=== PATIENT | female | born 1955 | race Caucasian/White ===

== ENCOUNTER 2016-07-01 04:05 | Emergency (ER) | payer BC ==
[2016-07-01 04:17] VITALS: BP 128/66
--- NOTE | 2016-07-01 04:55 | EDM.PDOC ---
ED HPI GENERAL MEDICAL PROBLEM - General Chief Complaint: General Stated Complaint: COUGH Time Seen by Provider: 07/01/16 04:44 Source of Information: Reports: Patient History Limitations: Reports: No limitations - History of Present Illness INITIAL COMMENTS - FREE TEXT/NARRATIVE: Patient came here by private vehicle for evaluation of cough. Has had cold symptoms including runny nose, irritated throat, and cough. Present for three days. Using OTC cold medication. Tonight she was woken up by worsening cough. Cough triggered urinary incontinence. No fevers. No SOB reported although it is noted that she has audible expiratory wheeze during intake interview. Denies GI changes. No history of smoking but grew up in smoking household. No other complaints. Cannot remember her medications. 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 ED EXAM, GENERAL - Physical Exam Exam: See Below Exam Limited By: No limitations General Appearance: alert, WD/WN, no apparent distress Eye Exam: bilateral eye: EOMI, PERRL Ears: normal external exam, normal canal, hearing grossly normal, normal TMs Throat/Mouth: Normal inspection, Normal lips, Normal oropharynx, Normal voice, No airway compromise Head: atraumatic, normocephalic Neck: normal inspection, supple, non-tender, full range of motion. No: lymphadenopathy (L), lymphadenopathy (R) Respiratory/Chest: no respiratory distress, no accessory muscle use, wheezing ( mild expiratory wheeze at times). No: crackles, rales, rhonchi, stridor, accessory muscle use, retractions, splinting Cardiovascular: regular rate, rhythm, no edema, no murmur GI/Abdominal: soft, non tender Back Exam: normal inspection Extremities: normal inspection, normal capillary refill Neurological: alert, oriented, normal cognition, no motor/sensory deficits Psychiatric: normal affect, normal mood Skin Exam: Warm, Dry, Intact, Normal color Course - Vital Signs Last Recorded V/S: Last Vital Signs Temp 37.7 C 07/01/16 04:07 Pulse 88 07/01/16 04:07 Resp 20 07/01/16 04:07 BP 128/66 07/01/16 04:07 Pulse Ox 95 07/01/16 04:07 - Orders/Labs/Meds Orders: Active Orders 24 hr Category Date Time Status Chest 2V [CR] Stat Exams 07/01/16 04:24 Taken - Radiology Interpretation Free Text/Narrative:: XRay of chest compared to prior studies from 5 years ago. Continues to show similar heavy markings at bases that Radiology felt consistent with fibrotic changes. Slight progression in severity of markings noted. No obvious infiltrates although due to markings cannot fully rule out patchy bronchopneumonia. - Re-Assessments/Exams Free Text/Narrative Re-Assessment/Exam: 07/01/16 05:16 Patient given Solu-medrol and Duo Neb in ER. Plan at this time is to treat with steroids, albuterol inhaler, and cough medication. Given absence of fever and history/exam, appears more likely viral in nature. Cannot rule out possible need for antibiotics however and will give patient Rx to use if symptoms worsen over the next few days or if things do not improve at the one week camila. She is to follow up as needed. Departure - Departure Time of Disposition: 05:28 Disposition: Home, Self-Care 01 Condition: good Clinical Impression: Respiratory tract infection Prescriptions: Doxycycline [Vibramycin] 100 mg PO Q12HR #14 cap Prednisone [IMW: predniSONE] 40 mg PO WITHBREAKFAST #8 tab Forms: ED Department Discharge Additional Instructions: Follow up as needed if you experience worsening or if symptoms are not improving within 7-10 days. Use albuterol inhaler every 6-8 hours for the next week to help with coughing/airway. If needed, you can use it as often as every 4-6 hours. If symptoms suddenly worsen, or you develop fever, fill the prescription for the antibiotics. Most viruses peak in intensity around days 3-5 then start to improve. If this does not follow a normal viral course then consider taking the antibiotic. Follow up as needed if you experience problems. - My Orders Last 24 Hours: My Active Orders 07/01/16 04:24 Chest 2V [CR] Stat - Assessment/Plan Last 24 Hours: My Active Orders 07/01/16 04:24 Chest 2V [CR] Stat
[2016-07-01] MEDS ORDERED: Albuterol/Ipratropium 3.0-0.5 MG/3 ML Neb Soln NEB ONE (04:58)
[2016-07-01] MEDS ORDERED: methylPREDNISolone Sodium Succinate 125 MG/2 ML SDV IM ONE (04:58)
== END 2016-07-01 05:45 | disposition home or self-care (01) ==
LOC: LL.ED 04:05
DX: J98.8 Other specified respiratory disorders (principal); I10 Essential (primary) hypertension
CPT/HCPCS: 71020; 94640; 96372; 99283; J2930

== ENCOUNTER 2017-05-03 22:15 | Emergency (ER) | payer BC ==
--- NOTE | 2017-05-03 22:34 | EDM.PDOC ---
ED HPI GENERAL MEDICAL PROBLEM - General Chief Complaint: Back Pain or Injury Stated Complaint: Back Pain Time Seen by Provider: 05/03/17 22:25 Source of Information: Reports: Patient, Family (), Old Records ([facility] chart/EMR) History Limitations: Reports: No Limitations - History of Present Illness INITIAL COMMENTS - FREE TEXT/NARRATIVE: The patient was brought to the emergency room via private automobile by her for evaluation of 10/10 right-sided sharp low back pain and spasms with additional 4/10 mid to distal left humeral pain after she slipped on the ice in town at about 21:00 hours. She did have some mild urinary incontinence at that time, however no history of paresthesias, neurological deficits, weakness, etc. Note previous history of left elbow fracture as below, however she normally does not have any problems with low back pain. She denies any headaches, visual changes, head injury, loss of consciousness, nausea, change in mental status, or other complaints or injuries. The patient denies any chest pain/pressure, heart flutter, dizziness, orthostasis, orthopnea, diaphoresis, paresthesias, recent decreased exercise tolerance, or any other anginal-type symptoms. No recent history of abdominal pain, heartburn, nausea, diarrhea, melena, gross hematochezia, or any food intolerance, including fatty foods, etc.. The patient also denies any recent fever, cough, wheezing, dyspnea, etc.. She did take 650 mg of Tylenol at 21:30 hours, however did have one episode of emesis shortly thereafter. Onset: Today, Sudden Onset Date: 05/03/17 Onset Time: 21:00 Duration: Constant Location: Reports: Back (Low back as above), Upper Extremity, Left (As above). Denies: Head, Face, Neck, Chest, Abdomen, Pelvis, Upper Extremity, Right, Lower Extremity, Left, Lower Extremity, Right, Radiates to Quality: Reports: Same as Previous Episode, Sharp, Stabbing Severity: Severe Improves with: Reports: Rest Worsens with: Reports: Movement Context: Reports: Trauma (As above) Associated Symptoms: Reports: Nausea/Vomiting (As above). Denies: Confusion, Chest Pain, Cough, Diaphoresis, Fever/Chills, Headaches, Loss of Appetite, Malaise, Seizure, Shortness of Breath, Syncope, Weakness Treatments FLOOR SCRAPER: Reports: Acetaminophen Right Lower Back Pain Score (Numeric/FACES): 10 Left Arm Pain Score (Numeric/FACES): 4 - Related Data Allergies Allergy/AdvReac Type Severity Reaction Status Date / Time No Known Allergies Allergy Verified 07/01/16 04:06 Home Meds: Home Meds Acetaminophen 650 mg PO Q4HR PRN 05/03/17 [History] Aspirin [Ecotrin] 81 mg PO DAILY 05/03/17 [History] Bisoprolol [Zebeta] 5 mg PO DAILY 05/03/17 [History] Calcium Carbonate/Vitamin D3 [Calcium 600 + Vit D Tablet] 1 tab PO DAILY [History] Cyclobenzaprine [Flexeril] 10 mg PO TID PRN #30 tab 05/03/17 [Rx] Sertraline [Zoloft] 50 mg PO DAILY 05/03/17 [History] Ubidecarenone [Co Q-10] 100 mg PO DAILY 05/03/17 [History] Past Medical History HEENT History: Reports: Cataract, Impaired Vision, Other (See Below). Denies: Allergic Rhinitis, Glaucoma, Hard of Hearing, Macular Degeneration, Retinal Detachment Other HEENT History: Patient wears glasses beginning cataracts Cardiovascular History: Reports: High Cholesterol, Hypertension, PVD, Other ( See Below). Denies: Afib, Aneurysm, Arrhythmia, Blood Clots/VTE/DVT, CAD, Heart Failure, Heart Murmur, RI, Syncope Other Cardiovascular History: Hyperlipidemia with secondary fatty liver as below. Varicose veins on the legs bilaterally. Respiratory History: Reports: Intubation, Previous, Other (See Below). Denies: Asthma, COPD, PE, Pneumothorax, Sleep Apnea, TB Other Respiratory History: History of 6 mm right middle lobe benign pulmonary granuloma Gastrointestinal History: Reports: Cholelithiasis, Gastritis, Helicobacter Pylori, Other (See Below). Denies: Celiac Disease, Chronic Constipation, Chronic Diarrhea, Colon Polyp, Diverticulosis, Fecal Incontinence, GERD, GI Bleed, Inflammatory Bowel Disease, Irritable Bowel Syndrome, Jaundice, Pancreatitis Other Gastrointestinal History: History of gastritis with positive H. pylori biopsy by EGD on 12/28/05 with patient uncertain whether this infection was treated. Nonsymptomatic cholelithiasis. Fatty liver with secondary LFTs elevation. Genitourinary History: Reports: Other (See Below). Denies: Acute Renal Failure , Chronic Renal Insuffiency, Renal Calculus, STD, Urinary Incontinence, UTI, Recurrent Other Genitourinary History: Benign right renal cyst by ultrasound SUBASSEMBLER History: Reports: Dysfunctional Uterine Bleeding, Fibroids, . Denies: Endometriosis, Polycystic Ovaries : 1 Para: 1 (Full term without complications during or delivery) LMP (Approximate): Menopausal (Surgical menopause as below with complete hysterectomy secondary to uterine fibroids) Musculoskeletal History: Reports: Arthritis, Fracture, Osteoarthritis, Osteoporosis, Other (See Below). Denies: Amputation, Back Pain, Chronic, Fibromyalgia, Gout, Neck Pain, Chronic, RA, SLE Other Musculoskeletal History: Osteoarthritis mostly in her knees with history of left knee chondromalacia by MRI. Proximal radial head left elbow fracture on 06/11/05 Neurological History: Reports: Headaches, Chronic, Migraines. Denies: Cerebral Aneurysms, Concussion, CVA, Head Trauma, MS, Neuropathy, Diabetic, Neuropathy, Peripheral, Parkinson's, Seizure, TIA Psychiatric History: Reports: Anxiety, Depression. Denies: Abuse, Victim of, ADD, ADHD, Addiction, Psych Hospitalization(s), PTSD, Suicide Attempt, Suicidal Ideation Endocrine/Metabolic History: Reports: Obesity/BMI 30+, Osteopenia, Osteoporosis. Denies: Diabetes, Type I, Diabetes, Type II, Diabetes Mellitus, Type 3c, Hypothyroidism, IDDM Hematologic History: Reports: Anemia, Blood Transfusion(s), Iron Deficiency, Other (See Below). Denies: B12 Deficiency Other Hematologic History: 2 units of packed red blood cells secondary to iron deficiency anemia from dysfunctional uterine bleeding in 2006 Immunologic History: Reports: None. Denies: AIDS, HIV, SLE Oncologic (Cancer) History: Reports: None. Denies: Basal Cell Carcinoma, Cervix , Hodgkin's Lymphoma, Leukemia, Lymphoma, Malignant Melanoma, Non-Hodgkin's Lymphoma Dermatologic History: Reports: None. Denies: Eczema, Psoriasis - Infectious Disease History Infectious Disease History: Reports: Chicken Pox, Helicobacter Pylori (As above) , Mononucleosis (At age 20), Mumps, Shingles (Left facial and cervical herpes zoster in 2004). Denies: C-Difficile, Measles, Meningitis, MRSA, Rheumatic Fever, Rubella, Scarlet Fever, TB, VRE - Past Surgical History Head Surgeries/Procedures: Reports: None HEENT Surgical History: Reports: Oral Surgery, Other (See Below). Denies: Adenoidectomy, Cataract Surgery, Eye Surgery, Laser Surgery, LASIK, Myringotomy w Tube(s), Naso-Sinus Surgery, Tonsillectomy Other HEENT Surgeries/Procedures: [place] teeth extraction 4 as a teenager. Cardiovascular Surgical History: Reports: None. Denies: Varicose Respiratory Surgical History: Reports: None. Denies: Thoracentesis GI Surgical History: Reports: Colonoscopy, EGD, Other (See Below). Denies: Appendectomy, Cholecystectomy, Hernia, Abdominal, Hernia, Inguinal, Hernia Repair/Other Other GI Surgeries/Procedures: EGD and colonoscopy on 12/28/06 Female Surgical History: Reports: Breast Biopsy, Hysterectomy, Salpingo- Oophorectomy, Other (See Below) Other Female Surgeries/Procedures: Complete hysterectomy including bilateral salpingo-oophorectomy at age 52 secondary to dysfunctional uterine bleeding. Breast biopsyside unknown for benign disease in her 30s Endocrine Surgical History: Reports: None. Denies: Thyroid Biopsy Neurological Surgical History: Denies: C-Spine, Discectomy, Laminectomy, Lumbar Spine, Sacral Spine, Spinal Fusion, Vertebroplasty Musculoskeletal Surgical History: Denies: Arthroscopic Procedure, Carpal Tunnel , Ganglion Cyst, Joint Replacement, ORIF, Shoulder Surgery Oncologic Surgical History: Reports: Biopsy of Breast, Other (See Below) Other Oncologic Surgeries/Procedures: Breast biopsy for benign disease as above Dermatological Surgical History: Reports: None - Past Imaging History Past Imaging History: Reports: CAT Scan (CT of the cervical and lumbar spines on 09/14/09), DEXA Scan (03/28/03), Mammogram (Last mammogram on 06/16/16), MRI ( Left knee on 11/29/15), Ultrasound (Abdominal ultrasound on 06/02/13. Pelvic ultrasound on 12/18/06), Venous Doppler (Venous Doppler study of the left leg on 04/23/17 with previous evaluation on 11/15/15) Social & Family History - Tobacco Use Smoking Status *Q: Never Smoker Used Tobacco, but Quit: No Smoking Cessation Information Provided To Patient: No Second Hand Smoke Exposure: No Second Hand Smoke Education Provided: No - Caffeine Use Caffeine Use: Reports: None. Denies: Coffee, Energy Drinks, Soda, Tea - Alcohol Use Alcohol Use History: No Days Per Week of Alcohol Use: 0 (No previous DWIs, problems with alcohol abuse, etc.) Alcohol Use in Last Twelve Months: No - Recreational Drug Use Recreational Drug Use: No Recreational Drug Type: Denies: Amphetamines (Speed), Cocaine, Heroin, Inhalants (Glues, Solvents, Aerosols), LSD (Acid), Marijuana/Hashish, Methamphetamine, Morphine, Oxycodone - Living Situation & Occupation Living situation: Reports: (1979, 1 child), with Family () Occupation: Employed (Housekeeping at [employer]) ED ROS GENERAL - Review of Systems Review Of Systems: See Below Constitutional: Reports: No Symptoms. Denies: Fever, Chills, Malaise, Weakness , Fatigue, Night Sweats, Diaphoresis, Decreased Appetite, Weight Loss HEENT: Reports: Glasses. Denies: Dental Pain, Ear Discharge, Ear Pain, Hearing Loss, Rhinitis, Sinus Problem, Throat Pain, Vertigo, Vision Change Respiratory: Reports: No Symptoms. Denies: Shortness of Breath, Wheezing, Pleuritic Chest Pain, Cough Cardiovascular: Reports: No Symptoms. Denies: Chest Pain, Blood Pressure Problem (Hypertension under good control recently), Claudication, Dyspnea on Exertion, Edema, Lightheadedness, Orthopnea, Palpitations, PND, Syncope Endocrine: Reports: No Symptoms. Denies: Fatigue GI/Abdominal: Reports: No Symptoms, Vomiting. Denies: Abdominal Pain, Anorexia , Black Stool, Bloody Stool, Constipation, Diarrhea, Decreased Appetite, Difficulty Swallowing, Distension, Flatus, Hematemesis, Hematochezia, Melena, Nausea, Stool Incontinence : Reports: Incontinence (With accident as above). Denies: Discharge, Dysuria , Flank Pain, Frequency, Hematuria, Pain, Urgency, Urinary Retention Musculoskeletal: Reports: Arm Pain (Left humerus), Back Pain (Low back), Muscle Pain (Right low-back), Muscle Stiffness (As above). Denies: Neck Pain, Shoulder Pain, Hand Pain, Leg Pain, Foot Pain, Joint Pain, Joint Swelling Skin: Reports: No Symptoms. Denies: Diaphoresis, Bruising, Wound Neurological: Reports: Difficulty Walking (Secondary to low back pain). Denies : Confusion, Dizziness, Headache, Numbness, Paresthesia, Tingling, Weakness, Gait Disturbance Psychiatric: Reports: No Symptoms. Denies: Agitation, Anxiety, Confusion, Depression Hematologic/Lymphatic: Reports: No Symptoms Immunologic: Reports: No Symptoms ED EXAM, GENERAL - Physical Exam Exam: See Below Exam Limited By: No Limitations General Appearance: Alert, WD/WN, No Apparent Distress Head: Atraumatic, Normocephalic. No: Facial Swelling, Facial Tenderness, Sinus Tenderness Neck: Normal Inspection, Supple, Non-Tender, Full Range of Motion. No: Carotid Bruit, Lymphadenopathy (L), Lymphadenopathy (R), Thyromegaly Respiratory/Chest: No Respiratory Distress, Lungs Clear, Normal Breath Sounds, No Accessory Muscle Use, Chest Non-Tender. No: Pleural Rub, Retractions Cardiovascular: Normal Peripheral Pulses, Regular Rate, Rhythm, No Edema, No Gallop, No JVD, No Murmur, No Rub. No: Gallop/S3, Gallop/S4 Peripheral Pulses: 2+: Radial (L), Radial (R) GI/Abdominal: Normal Bowel Sounds, Soft, Non-Tender, No Organomegaly, No Distention, No Abnormal Bruit, No Mass, Pelvis Stable, Other (obese). No: Guarding (Female) Exam: Deferred Rectal (Female) Exam: Deferred Back Exam: Decreased Range of Motion (Secondary to low back spasms), Muscle Spasm (Moderate mid right lower lumbar), Paraspinal Tenderness (Moderate right mid lumbar). No: Vertebral Tenderness Extremities: Normal Inspection, Normal Range of Motion, Non-Tender, No Pedal Edema, Normal Capillary Refill. No: Patel's Sign Neurological: Alert, Oriented, CN II-XII Intact, Normal Cognition, Normal Gait, No Motor/Sensory Deficits Psychiatric: Normal Affect, Normal Mood Skin Exam: Warm, Dry, Intact, Normal Color, No Rash. No: Diaphoretic, Ecchymosis, Wound/Incision Lymphatic: No Adenopathy Course - Vital Signs Last Recorded V/S: Last Vital Signs Temp 36.3 C 05/03/17 22:27 Pulse 82 05/03/17 22:27 Resp 18 05/03/17 22:27 BP 143/86 H 05/03/17 23:28 Pulse Ox 100 05/03/17 22:27 Vital Signs - 24 hr 05/03/17 05/03/17 22:27 23:28 Temperature [ 36.3 C Temporal] Pulse, 82 Peripheral [ Left Pulse Oximetry] Respiratory 18 Rate Blood Pressure 189/125 H 143/86 H [Left Upper Arm ] O2 Sat by Pulse 100 Oximetry - Orders/Labs/Meds Orders: Active Orders 24 hr Category Date Time Status Humerus Lt [CR] Stat Exams 05/03/17 22:35 Ordered Lumbar Spine 1V [CR] Stat Exams 05/03/17 22:34 Ordered Lumbar Spine 2 or 3V [CR] Stat Exams 05/03/17 22:34 Ordered Obtain Past Medical Record [OM.PC] Routine Oth 05/03/17 22:34 Active Labs: None Meds: Medications Discontinued Medications Generic Name Dose Route Start Last Admin Trade Name Freq PRN Reason Stop Dose Admin Diazepam 10 mg 05/03/17 22:35 05/03/17 22:43 Valium IM 05/03/17 22:36 10 mg ONETIME ONE Administration Ketorolac Tromethamine 60 mg 05/03/17 22:35 05/03/17 22:41 Toradol IM 05/03/17 22:36 60 mg ONETIME ONE Administration - Radiology Interpretation Free Text/Narrative:: X-rays of the lumbar spine, 3 views, shows evidence of moderate osteoarthritic changes, including spur formation, with moderate decreased lordosis of the lumbar spine consistent with spasms but no acute fractures or dislocations X-rays of the left humerus, 2 views, shows no evidence of fracture or dislocation Departure - Departure Time of Disposition: 23:45 Disposition: Home, Self-Care 01 Condition: Good Clinical Impression: Osteoarthritis, Low back pain, Contusion, Hypertension, Hyperlipidemia, Mixed anxiety depressive disorder - Discharge Information Prescriptions: Cyclobenzaprine [Flexeril] 10 mg PO TID PRN #30 tab PRN Reason: Spasms Instructions: Back Injury Prevention, [id number], Muscle Strain, [id number] , Contusion, [id number], Back Pain, Adult, [id number] Referrals: Sonia Grossman NP [Primary Care Provider] - Forms: ED Department Discharge, ED Return to Work/School Form Additional Instructions: 1. Follow up with your regular provider in 10-14 days as needed, if symptoms persist. 2. Tylenol 650 mg by mouth every 4 hours and/or OTC ibuprofen 2-3 tabs by mouth every 6 hours with food as directed./needed. Next dose of ibuprofen as needed in 6 hours secondary to medications given in the emergency room 3. BenGay or equivalent, heating pad, and/or ice packs as directed. 4. Work excuse- See Form 5. Advance activity as tolerated/directed 6. Sedation precautions with no driving, etc. for 12 hours because of emergency room medications. - Problem List & Annotations (1) Low back pain SNOMED Code(s): 496708643 Code(s): M54.5 - LOW BACK PAIN Status: Acute Priority: High Onset Date : 05/03/17 Annotation/Comment:: Acute low back sprain with excellent results with the treatment as above. Symptomatic relief as per discharge instructions. Work excuse provided. Qualifiers: Chronicity: acute Back pain laterality: right Sciatica presence: without sciatica Qualified Code(s): M54.5 - Low back pain (2) Contusion SNOMED Code(s): 173967389 Code(s): T14.8XXA - OTHER INJURY OF UNSPECIFIED BODY REGION, INITIAL ENCOUNTER Status: Acute Priority: High Onset Date: 05/03/17 Annotation/ Comment:: Minor contusion of the left arm with no significant injury. Symptomatic relief as per discharge instructions Qualifiers: Encounter type: initial encounter Contusion area: upper arm Laterality: left Qualified Code(s): S40.022A - Contusion of left upper arm, initial encounter (3) Hyperlipidemia SNOMED Code(s): 05484253 Code(s): E78.5 - HYPERLIPIDEMIA, UNSPECIFIED Status: Chronic Priority: Medium Annotation/Comment:: Continue to observe closely by her regular provider with no current medical therapy Qualifiers: Hyperlipidemia type: mixed hyperlipidemia Qualified Code(s): E78.2 - Mixed hyperlipidemia (4) Hypertension SNOMED Code(s): 49511639 Code(s): I10 - ESSENTIAL (PRIMARY) HYPERTENSION Status: Chronic Priority : Medium Annotation/Comment:: Blood pressure somewhat elevated on arrival secondary to her pain with significant improvement prior to discharge Qualifiers: Hypertension type: essential hypertension Qualified Code(s): I10 - Essential (primary) hypertension (5) Mixed anxiety depressive disorder SNOMED Code(s): 767092701 Code(s): F41.8 - OTHER SPECIFIED ANXIETY DISORDERS Status: Chronic Priority: Medium Annotation/Comment:: Stable by patient history (6) Osteoarthritis SNOMED Code(s): 183123026 Code(s): M19.90 - UNSPECIFIED OSTEOARTHRITIS, UNSPECIFIED SITE Status: Chronic Priority: Medium Annotation/Comment:: Otherwise stable by patient history Qualifiers: Osteoarthritis location: multiple joints Osteoarthritis type: primary Qualified Code(s): M15.0 - Primary generalized (osteo)arthritis - Problem List Review Problem List Initiated/Reviewed/Updated: Yes - My Orders Last 24 Hours: My Active Orders 05/03/17 22:34 Lumbar Spine 1V [CR] Stat Lumbar Spine 2 or 3V [CR] Stat Obtain Past Medical Record [OM.PC] Routine 05/03/17 22:35 Humerus Lt [CR] Stat - Assessment/Plan Last 24 Hours: My Active Orders 05/03/17 22:34 Lumbar Spine 1V [CR] Stat Lumbar Spine 2 or 3V [CR] Stat Obtain Past Medical Record [OM.PC] Routine 05/03/17 22:35 Humerus Lt [CR] Stat Assessment:: As above Plan: As above. Extensive precautions were given to the patient and her , who are in agreement with the treatment plan. See Patient Instructions for further treatment and plan.
[2017-05-03] MEDS ORDERED: Ketorolac 60 MG/2 ML SDV IM ONE (22:35)
[2017-05-03 23:28] VITALS: BP 143/86
== END 2017-05-03 23:50 | disposition home or self-care (01) ==
LOC: LL.ED 22:15
DX: S40.022A Contusion of left upper arm, initial encounter (principal); M47.816 Spondylosis without myelopathy or radiculopathy, lumbar region; I10 Essential (primary) hypertension; E78.00 Pure hypercholesterolemia, unspecified; F41.8 Other specified anxiety disorders; Z79.82 Long term (current) use of aspirin; W00.0XXA Fall on same level due to ice and snow, initial encounter
CPT/HCPCS: 72100; 73060; 96372; 99284; J1885; J3360

== ENCOUNTER 2018-09-19 07:02 | Day surgery (SDC) | payer BC ==
[~2018-09-19 07:02] MED LIST: Propofol 200 MG/20 ML SDV ONE; Sodium Chloride 0.9% 10 ML Syringe FLUSH PRN; fentaNYL 250 MCG/5 ML SDV ONE
[2018-09-19] MEDS: Lactated Ringers 1,000 ML IV SCH ×2 (07:19→11:39)
[2018-09-19] MEDS ORDERED: HYDROmorphone 0.5 MG/0.5 ML Syringe ONE ×2 (08:20→09:10)
[2018-09-19] MEDS ORDERED: Propofol 200 MG/20 ML SDV ONE (08:20)
[2018-09-19] MEDS ORDERED: Succinylcholine 200 MG/10 ML MDV ONE (08:20)
[2018-09-19] MEDS ORDERED: Ketorolac 15 MG/ML SDV ONE (08:20)
[2018-09-19] MEDS ORDERED: ceFAZolin 1 GM Vial ONE (08:20)
[2018-09-19] MEDS ORDERED: fentaNYL 250 MCG/5 ML SDV ONE (08:20)
[2018-09-19] MEDS ORDERED: Dexamethasone 10 MG/ML SDV ONE (08:20)
[2018-09-19] MEDS ORDERED: Ondansetron 4 MG Tab.DIS ONE (08:20)
[2018-09-19] MEDS ORDERED: Rocuronium 100 MG/10 ML MDV ONE (08:20)
[2018-09-19] MEDS ORDERED: Glycopyrrolate 0.2 MG/ML SDV ONE (08:20)
[2018-09-19] MEDS ORDERED: Neostigmine Methylsulfate 10 MG/10 ML MDV ONE (08:20)
[2018-09-19] MEDS ORDERED: Lidocaine 2% 100 MG/5 ML Syringe ONE (08:20)
--- NOTE | 2018-09-19 08:32 | PCM.PN ---
- General Info Date of Service: 09/19/18 - Review of Systems Systems Review Comment:: 63-year-old female with recent history of biliary colic. She has gallstones documented on ultrasound. She presents today for cholecystectomy. There is been no significant change in her health status since her recent evaluation. I again reviewed the proposed procedure. She agrees to proceed accepting risks. - Patient Data Vitals - Most Recent: Last Vital Signs Temp 98.1 F 09/19/18 07:15 Pulse 61 09/19/18 07:15 Resp 18 09/19/18 07:15 BP 155/63 H 09/19/18 07:15 Pulse Ox 96 09/19/18 07:15 Weight - Most Recent: 109.316 kg Med Orders - Current: Current Medications Lactated Ringer's (Ringers, Lactated) 1,000 mls @ 125 mls/hr IV ASDIRECTED MITUL Last Admin: 09/19/18 07:19 Dose: 125 mls/hr Sodium Chloride (Saline Flush) 10 ml FLUSH ASDIRECTED PRN PRN Reason: Keep Vein Open Discontinued Medications Fentanyl (Sublimaze) Confirm Administered Dose 250 mcg .ROUTE .STK-MED ONE Stop: 09/19/18 06:45 Propofol (Diprivan 20 Ml) Confirm Administered Dose 200 mg .ROUTE .STK-MED ONE Stop: 09/19/18 06:46 - Problem List Review Problem List Initiated/Reviewed/Updated: Yes - Assessment Assessment:: Symptomatic Cholelithiasis - Plan Plan:: Cholecystectomy
[2018-09-19] MEDS ORDERED: Bupivacaine 0.25%/EPINEPHrine 1:200,000 30 ML SDV INJECT ONE (08:55)
--- NOTE | 2018-09-19 10:15 | PCM.OPNOTE ---
- General Post-Op/Procedure Note Date of Surgery/Procedure: 09/19/18 Operative Procedure(s): Laparoscopic Cholecystectomy Findings: Gallbladder with chronic inflammation and multiple stones Pre Op Diagnosis: Symptomatic Cholelithiasis Post-Op Diagnosis: Same Anesthesia Technique: General ET Tube Primary Surgeon: Nehemias Smith Pathology: Gallbladder Output, Urine Amount: 0 EBL in mLs: 10 Complications: None Condition: Good
--- NOTE | 2018-09-19 14:12 | OR ---
Date of Procedure: 09/19/2018 PREOPERATIVE DIAGNOSIS: Symptomatic cholelithiasis. POSTOPERATIVE DIAGNOSIS: Symptomatic cholelithiasis. OPERATION PERFORMED: Laparoscopic cholecystectomy. INDICATIONS FOR SURGERY: This 63-year-old female has been having recent symptoms of upper abdominal and right-sided back pain. Workup has identified cholelithiasis which was felt to be the source of her symptoms and she comes for cholecystectomy. FINDINGS: The gallbladder shows some evidence of chronic inflammation with omental adhesions to its undersurface. It contains multiple small dark stones. The adjacent liver and other intraabdominal organs appear normal as viewed laparoscopically. The patient has had a previous hysterectomy. DESCRIPTION OF PROCEDURE: The patient was taken to the operating room. She was given general endotracheal anesthesia, and the abdomen was sterilely prepped and draped. A supraumbilical stab wound incision was made. Through this, a Veress needle was inserted and pneumoperitoneum was then achieved through this Veress needle to a pressure of 15 mmHg. The Veress needle was replaced with a 12 mm trocar into which the 0 degree 10 mm laparoscopic camera was inserted. Under direct visualization, 5 mm trocar was then placed in the subxiphoid midline and in 2 areas of the right abdomen. All trocar sites were infiltrated with Marcaine prior to incision. Intraabdominal inspection was carried out and attention was turned to the gallbladder. It was secured with grasping forceps placed through the lateral trocars and retracted superiorly and anteriorly. Fatty tissue adhesions to the undersurface of the gallbladder were cleared and then the lower portion of the gallbladder was exposed by clearing the peritoneum and fatty tissue away. Dissection was continued until the cystic duct and cystic artery were identified. When the cystic artery was clearly identified, it was doubly clipped and divided. The triangle of Calot was cleared, and then after clearly and positively identifying the cystic duct, it was milked and it was doubly clipped and divided near its junction with the gallbladder. The gallbladder was then dissected free from the undersurface of the liver using the cautery device. Once the gallbladder had been completely freed, it was extracted through the umbilical trocar site. This did require opening the gallbladder extra-abdominally and extracting stone material to decompress the gallbladder, but there was no sign of spillage of bile or stone intra- abdominally. Reinspection of the gallbladder bed was carried out and full hemostasis was assured with use of cautery. When there was no evidence of bleeding or any other complication, the trocars were removed under direct visualization and the pneumoperitoneum was evacuated. The fascia of the umbilical trocar site was closed with a [id number] 0 Vicryl suture. The wounds were irrigated with Betadine and saline solution. The skin incisions were approximated with interrupted 4-0 Vicryl in a subcuticular stitch. Benzoin and Steri-Strips were applied. Antibiotic ointment and sterile dressings were placed. The patient was then awakened, extubated, and taken from the operating room in satisfactory condition. ESTIMATED BLOOD LOSS: 10 mL. COMPLICATIONS: None. PROGNOSIS: Good. RAJINDER Smith MD /[id number]
[2018-09-19 15:38] VITALS: BP 119/53
== END 2018-09-19 15:25 | disposition home or self-care (01) ==
LOC: LL.SDS 07:02
PROVIDERS: ATTEND Surgery
DX: K80.10 Calculus of gallbladder with chronic cholecystitis without obstruction (principal); K82.8 Other specified diseases of gallbladder; I10 Essential (primary) hypertension; F32.9 Major depressive disorder, single episode, unspecified; G43.909 Migraine, unspecified, not intractable, without status migrainosus; Z88.6 Allergy status to analgesic agent; Z88.8 Allergy status to other drugs, medicaments and biological substances; Z79.82 Long term (current) use of aspirin; Z79.899 Other long term (current) drug therapy
CPT/HCPCS: A9270-GY; J0330; J0690; J1100; J1170; J1885; J2001; J2704; J2710; J3010; J3490; J7120

== ENCOUNTER 2018-12-02 18:16 | Emergency (ER) | payer BC ==
--- NOTE | 2018-12-02 18:33 | EDM.PDOC ---
ED HPI GENERAL MEDICAL PROBLEM - General Chief Complaint: Laceration Stated Complaint: laceration Time Seen by Provider: 12/02/18 18:25 Source of Information: Reports: Patient, Family (), Old Records ([facility] chart/EMR) History Limitations: Reports: No Limitations - History of Present Illness INITIAL COMMENTS - FREE TEXT/NARRATIVE: The patient was brought to the emergency room via private automobile by her for evaluation of 5/10 throbbing left finger pain, which occurred when she accidentally caught her finger in the garage door at about 18:10 hours this evening. Patient did rinse out the laceration site with cold water and place a dressing on the wound. She has not injured this digit in the past. The patient is right-handed. No history of foreign body, paresthesias, neurological deficits , or other complaints or injuries. The patient denies any chest pain/pressure, heart flutter, dizziness, orthostasis, orthopnea, diaphoresis, paresthesias, recent decreased exercise tolerance, or any other anginal-type symptoms. No recent history of abdominal pain, heartburn, nausea, diarrhea, melena, gross hematochezia, or any food intolerance, including fatty foods, etc.. The patient also denies any recent fever, cough, wheezing, dyspnea, etc.. Onset: Today, Sudden Onset Date: 12/02/18 Onset Time: 18:10 Duration: Constant Location: Reports: Upper Extremity, Left. Denies: Head, Face, Neck, Chest, Abdomen, Back, Radiates to Quality: Reports: Same as Previous Episode, Throbbing Severity: Moderate Improves with: Reports: Movement Worsens with: Reports: Rest Context: Reports: Trauma (As above) Associated Symptoms: Denies: Confusion, Chest Pain, Cough, Diaphoresis, Fever/ Chills, Headaches, Loss of Appetite, Malaise, Nausea/Vomiting, Seizure, Shortness of Breath, Syncope, Weakness Treatments ROAD MENDER: Reports: Dressing(s), Other (see below) (As above) Left hand 4th digit Pain Score (Numeric/FACES): 5 - Related Data Allergies Allergy/AdvReac Type Severity Reaction Status Date / Time alendronate sodium Allergy Rash Verified 12/02/18 19:26 [From Fosamax] celebrex Allergy Rash Uncoded 12/02/18 19:26 Home Meds: Home Meds Bisoprolol [Zebeta] 5 mg PO DAILY 05/03/17 [History] Sertraline [Zoloft] 50 mg PO DAILY 05/03/17 [History] Mineral Oil/Pramoxine/ZnOx [Anusol] 1 applic TOP BID PRN 09/18/18 [History] Aspirin [Ecotrin EC] 325 mg PO DAILY 09/19/18 [History] Amoxicillin/Clavulanate K [Augmentin 875-125 MG] 1 tab PO BIDMEALS #20 tablet [Rx] Past Medical History HEENT History: Reports: Cataract, Impaired Vision. Denies: Allergic Rhinitis, Glaucoma, Hard of Hearing, Macular Degeneration, Otitis Media, Retinal Detachment Other HEENT History: Wears eyeglasses. Beginning cataracts. Cardiovascular History: Reports: High Cholesterol, Hypertension, PVD. Denies: Afib, Aneurysm, Arrhythmia, Blood Clots/VTE/DVT, CAD, Cardiomyopathy, Heart Failure, Heart Murmur, VT, Syncope Other Cardiovascular History: Hyperlipidemia with secondary fatty liver as below. Varicose veins on the legs bilaterally. History of thrombosis of the greater saphenous vein on 12/31/14. Respiratory History: Reports: Intubation, Previous, Other (See Below). Denies: Asthma, Bronchitis, Recurrent, COPD, Intubation, Difficult, PE, Pneumonia, Recurrent, Pneumothorax, Sleep Apnea, TB Other Respiratory History: History of 6 mm right middle lobe benign pulmonary granuloma Gastrointestinal History: Reports: Cholelithiasis, Gastritis, Hemorrhoids, Helicobacter Pylori. Denies: Celiac Disease, Chronic Constipation, Chronic Diarrhea, Colon Polyp, Fecal Incontinence, GERD, GI Bleed, Hiatal Hernia, Inflammatory Bowel Disease, Irritable Bowel Syndrome, Jaundice, PUD Other Gastrointestinal History: History of gastritis with positive H. pylori biopsy by EGD on 12/28/05 with patient uncertain whether this infection was treated. Cholelithiasis with surgery as below. Fatty liver with secondary LFTs elevation. Genitourinary History: Reports: Other (See Below). Denies: Acute Renal Failure , Chronic Renal Insuffiency, Renal Calculus, STD, Urinary Incontinence, UTI, Recurrent Other Genitourinary History: Benign right renal cyst by ultrasound RETAIL TRAINING MANAGER History: Reports: Dysfunctional Uterine Bleeding, Fibroids, . Denies: Endometriosis, Spontaneous : 1 Para: 1 LMP (Approximate): Other (See Below) Other RETAIL TRAINING MANAGER History: Full term without complications during pregnancies or deliveries. Surgical menopause secondary to uterine fibroids as below. Musculoskeletal History: Reports: Arthritis, Fracture, Osteoarthritis, Osteoporosis, Other (See Below). Denies: Amputation, Back Pain, Chronic, Gout, Neck Pain, Chronic, RA, SLE Other Musculoskeletal History: Osteoarthritis mostly in her knees with history of left knee chondromalacia by MRI. Proximal radial head left elbow fracture on 06/11/05 Neurological History: Reports: Headaches, Chronic, Migraines. Denies: Cerebral Aneurysms, Concussion, Head Trauma, MS, Neuropathy, Peripheral, Parkinson's, Seizure, TIA, Vertigo Psychiatric History: Reports: Anxiety, Depression. Denies: Abuse, Victim of, ADD, ADHD, Addiction, Psych Hospitalization(s), PTSD, Suicide Attempt, Suicidal Ideation Endocrine/Metabolic History: Reports: Obesity/BMI 30+, Osteopenia, Osteoporosis. Denies: Diabetes, Gestational, Diabetes, Type I, Diabetes, Type II, Diabetes Mellitus, Type 3c, Hypothyroidism, IDDM Hematologic History: Reports: Anemia, Blood Transfusion(s), Iron Deficiency Other Hematologic History: 2 units of packed red blood cells secondary to iron deficiency anemia from dysfunctional uterine bleeding in 2006 Immunologic History: Reports: None. Denies: AIDS, HIV, SLE Oncologic (Cancer) History: Reports: None. Denies: Basal Cell Carcinoma, Breast , Cervix, Colon, Hodgkin's Lymphoma, Leukemia, Lymphoma, Malignant Melanoma, Non -Hodgkin's Lymphoma, Squamous Cell Carcinoma Dermatologic History: Reports: None. Denies: Eczema, Psoriasis - Infectious Disease History Infectious Disease History: Reports: Chicken Pox, Helicobacter Pylori, Mononucleosis (At age 20), Mumps, Shingles (Left facial and cervical testosterone 2005.). Denies: C-Difficile, Measles, Meningitis, MRSA, Pertussis (Whooping Cough), Rheumatic Fever, Rubella, Scarlet Fever, TB, VRE - Past Surgical History Head Surgeries/Procedures: Reports: None HEENT Surgical History: Reports: None, Oral Surgery, Other (See Below). Denies : Adenoidectomy, Cataract Surgery, Eye Surgery, Laser Surgery, LASIK, Myringotomy w Tube(s), Naso-Sinus Surgery, Tonsillectomy Other HEENT Surgeries/Procedures: [place] teeth extraction 4 as a teenager Cardiovascular Surgical History: Reports: None. Denies: Varicose Respiratory Surgical History: Reports: None. Denies: Lung Biopsies, Thoracentesis GI Surgical History: Reports: Cholecystectomy, Colonoscopy, EGD, Other (See Below). Denies: Appendectomy, Hernia, Abdominal, Hernia, Inguinal, Hernia Repair/Other, Polypectomy Other GI Surgeries/Procedures: Laparoscopic cholecystectomy on 09/19/18. EGD and colonoscopy on 12/28/06. Female Surgical History: Reports: Breast Biopsy, Hysterectomy, Salpingo- Oophorectomy. Denies: D&C, Oophorectomy, Tubal Ligation Other Female Surgeries/Procedures: Complete hysterectomy including bilateral salpingo-oophorectomy at age 52 secondary to dysfunctional uterine bleeding. Breast biopsy for benign disease in her 32ss[age] unknown. Endocrine Surgical History: Reports: None. Denies: Thyroid Biopsy Neurological Surgical History: Reports: None. Denies: C-Spine, Discectomy, Laminectomy, Lumbar Spine, Sacral Spine, Spinal Fusion, Thoracic Spine, Vertebroplasty Musculoskeletal Surgical History: Reports: None. Denies: Arthroscopic Knee, Arthroscopic Procedure, Carpal Tunnel, Ganglion Cyst, Joint Replacement, ORIF, Shoulder Surgery Oncologic Surgical History: Reports: None Dermatological Surgical History: Reports: None - Past Imaging History Past Imaging History: Reports: CAT Scan (CT of the head on 05/29/18. CT of the cervical and lumbar spines on 09/14/09), DEXA Scan (03/28/03), Mammogram (Last mammogram on 06/16/16), MRI (Left knee on 11/29/15), Ultrasound (Abdominal ultrasound on 09/13/18 and 06/02/13. Pelvic ultrasound on 12/18/06), Venous Doppler (Venous Doppler study of the left leg on 12/31/17, 04/23/17, and 11/15/15. Right leg venous Doppler study on 04/23/17) Social & Family History - Family History Oncologic: Reports: Breast, Other (See Below) Other Oncologic Family History: Mother with breast cancer. - Caffeine Use Caffeine Use: Reports: None. Denies: Coffee, Energy Drinks, Soda, Tea - Living Situation & Occupation Living situation: Reports: (1981, 1 child), with Family () Occupation: Employed (Housekeeping at [employer]) ED ROS GENERAL - Review of Systems Review Of Systems: ROS reveals no pertinent complaints other than HPI. ED EXAM, SKIN/RASH Exam: See Below Exam Limited By: No Limitations General Appearance: Alert, WD/WN, No Apparent Distress Head: Atraumatic, Normocephalic. No: Facial Swelling, Facial Tenderness, Sinus Tenderness Neck: Normal Inspection, Supple, Non-Tender, Full Range of Motion. No: Lymphadenopathy (L), Lymphadenopathy (R), Thyromegaly Respiratory/Chest: No Respiratory Distress, Lungs Clear, Normal Breath Sounds, No Accessory Muscle Use, Chest Non-Tender. No: Pleural Rub, Retractions Cardiovascular: Normal Peripheral Pulses, Regular Rate, Rhythm, No Edema, No Gallop, No JVD, No Murmur, No Rub. No: Gallop/S3, Gallop/S4, Friction Rub Peripheral Pulses: 2+: Radial (L), Radial (R), Dorsalis Pedis (L), Dorsalis Pedis (R) GI/Abdominal: Normal Bowel Sounds, Soft, Non-Tender, No Organomegaly, No Distention, No Abnormal Bruit, No Mass, Pelvis Stable, Other (Obese). No: Guarding (Female) Exam: Deferred Rectal (Female) Exam: Deferred Back Exam: Normal Inspection, Full Range of Motion. No: CVA Tenderness (L), CVA Tenderness (R), Muscle Spasm Extremities: Normal Range of Motion, Non-Tender (Mild Palpation pain over laceration site), Normal Capillary Refill, Other (1.5 cm laceration over the palmar surface of the mid distal phalanx of digit #4 of the left hand with no evidence of foreign body, joint involvement, deformity, crepitation, nail involvement, etc.). No: Patel's Sign Neurological: Alert, Oriented, CN II-XII Intact, Normal Cognition, Normal Gait, No Motor/Sensory Deficits Psychiatric: Normal Affect, Normal Mood Skin: Wound/Incision (As above). No: Diaphoretic Location, Skin: Upper Extremity, Left Characteristics: Other (As above) Associated features: Tenderness Lymphatic: No Adenopathy ED SKIN PROCEDURES - Laceration/Wound Repair Left Distal Ventral Digit - 4th (Ring) Appearance: Subcutaneous Distal NVT: Neuro & Vascular Intact, No Tendon Injury Anesthetic Type: Local Local Anesthesia - Lidocaine (Xylocaine): 1% Plain Local Anesthetic Volume: 5cc Skin Prep: Providone-Iodine (Betadine) Saline Irrigation (cc's): 0 Exploration/Debridement/Repair: Wound Explored, In a Bloodless Field, Explored to Base, No Foreign Material Found, Multiple Flaps Aligned Closed with: Sutures Lac/Wound length In cm: 1.5 Suture Size: 4-0 # of Sutures: 7 Suture Type: Nylon, Interrupted, Simple Drain Placement: No Sterile Dressing Applied: Nurse Tetanus Status Addressed: Yes Complications: No - Splinting Left 4th Digit Splint Site: Left fourth finger Pre-Procedure NV Status: Normal Post-Procedure NV Status: Normal Splint Material: Aluminum-Foam (3-hole padded flexor/extension finger splint) Splint Design: Extensor (Flexion) Applied & Form Fitted By: Nurse Provider Post-Splint Application NV Check: NV Status Normal, Good Position Complications: No Course - Vital Signs Last Recorded V/S: Last Vital Signs Temp 36.1 C 12/02/18 18:24 Pulse 75 12/02/18 19:25 Resp 22 H 12/02/18 18:24 BP 134/72 12/02/18 19:25 Pulse Ox 100 12/02/18 19:25 Vital Signs - 24 hr 12/02/18 12/02/18 12/02/18 18:24 18:45 19:00 Temperature [ 36.1 C Temporal] Pulse, 92 83 94 Peripheral [ Pulse Oximetry] Respiratory 22 H Rate Blood Pressure 150/106 H [Left Upper Arm ] Blood Pressure 140/125 H 128/98 H 153/71 H [Right Lower Arm] O2 Sat by Pulse 99 98 Oximetry 12/02/18 19:25 Temperature [ Temporal] Pulse, 75 Peripheral [ Pulse Oximetry] Respiratory Rate Blood Pressure [Left Upper Arm ] Blood Pressure 134/72 [Right Lower Arm] O2 Sat by Pulse 100 Oximetry - Orders/Labs/Meds Orders: Active Orders 24 hr Category Date Time Status Vaccines to be Administered [RC] PER UNIT ROUTINE Care 12/02/18 19:16 Active Fingers Fourth Digit Lt F3 [CR] Stat Exams 12/02/18 18:34 Taken Durable Medical Equipment for Discharge [DME for Oth 12/02/18 19:16 Ordered Discharge] [COMM] Routine Obtain Past Medical Record [OM.PC] Routine Oth 12/02/18 18:34 Active Labs: None Meds: Medications Discontinued Medications Generic Name Dose Route Start Last Admin Trade Name Freq PRN Reason Stop Dose Admin Amoxicillin/Clavulanate Potassium 1 tab 12/02/18 19:26 12/02/18 19:34 Augmentin 875 Mg/125 Mg PO 12/02/18 19:27 1 tab ONETIME ONE Administration Diphtheria/Tetanus/Acell Pertussis 0.5 ml 12/02/18 19:16 12/02/18 19:33 Adacel IM 12/02/18 19:17 0.5 ml .ONCE ONE Administration Lidocaine HCl 5 ml 12/02/18 18:56 12/02/18 19:33 Xylocaine-Mpf 1% INJECT 12/02/18 18:57 5 ml ONETIME ONE Administration Neomycin/Polymyxin/Bacitracin 1 each 12/02/18 18:56 12/02/18 19:16 Triple Antibiotic Oint TOP 12/02/18 18:57 1 each ONETIME ONE Administration - Radiology Interpretation Free Text/Narrative:: X-rays of digit #4 of the left hand shows a nondisplaced and non-angulated tuft fracture of the distal phalanx with no evidence of foreign body. Departure - Departure Time of Disposition: 19:50 Disposition: Home, Self-Care 01 Condition: Good Clinical Impression: Mixed anxiety depressive disorder, Laceration, Closed fracture of tuft of distal phalanx of finger Osteoarthritis Qualifiers: Osteoarthritis location: multiple joints Osteoarthritis type: primary Qualified Code(s): M15.0 - Primary generalized (osteo)arthritis Hyperlipidemia Qualifiers: Hyperlipidemia type: mixed hyperlipidemia Qualified Code(s): E78.2 - Mixed hyperlipidemia Hypertension Qualifiers: Hypertension type: essential hypertension Qualified Code(s): I10 - Essential ( primary) hypertension - Discharge Information *PRESCRIPTION DRUG MONITORING PROGRAM REVIEWED*: Not Applicable *COPY OF PRESCRIPTION DRUG MONITORING REPORT IN PATIENT AGNES: Not Applicable Prescriptions: Amoxicillin/Clavulanate K [Augmentin 875-125 MG] 1 tab PO BIDMEALS #20 tablet Instructions: Finger Fracture, Adult, [id number], Laceration Care, Adult, [id number], Stitches, Mal, or Adhesive Wound Closure, [id number] Referrals: Sonia Grossman NP [Primary Care Provider] - Forms: ED Department Discharge, ED Return to Work/School Form Additional Instructions: 1. Followup with your regular provider in 10-14 days as directed for reevaluation, removal of 7 stitches, and repeat x-rays of your finger. Bring these discharge instructions with you to that visit. 2. Antibacterial soap wash/soak with subsequent antibacterial dressing such as Neosporin, etc. as directed 2 times per day until the wound or laceration site completely heals. Keep the area clean and dry with activity restrictions as discussed. Never use hydrogen peroxide for wound care. 3. Work excuse- See Form 4. Wear finger splint at all times with exception of wound care until otherwise directed by your regular provider. 5. Immediately after this visit verify that your cellular telephone's voicemail has been activated and is empty. Also verify that your home telephone 's answering machine is operating properly and has space to receive messages. Note that it is sometimes necessary for us to be able to contact you at a later date to discuss your medical care. 6. Please remember that we are ALWAYS here for you and want to answer any questions you may have. Feel free to call the hospital any time and we call you back GAB. 7. Strict compliance with your medical therapy as discussed with your regular provider to closely observe your blood pressures, pulses, etc. 8. Your mammogram and screening colonoscopy are behind schedule. Consider scheduling these at your follow-up visit as above. 9. Tylenol 650 mg by mouth every 4 hours and/or OTC ibuprofen 2-3 tabs by mouth every 6 hours with food as directed./needed. You may stagger these medications for 48-72 hours only, which essentially means that you are receiving a pain medication about every 2 hours. - Problem List & Annotations (1) Laceration SNOMED Code(s): 021671743 Code(s): KBA4545 - Status: Acute Priority: High Onset Date: 12/02/18 Annotation/Comment:: Excellent results laceration repair as above. DTaP given. Finger splint placed by the nurse as above/below. Wound care, activity restrictions, etc. discussed. Work excuse provided. DTaP given per the patient' s request with last immunization on 11/30/10. (2) Closed fracture of tuft of distal phalanx of finger SNOMED Code(s): 681910055 Code(s): S62.639A - DISP FX OF DISTAL PHALANX OF UNSP FINGER, INIT FOR CLOS FX Status: Acute Priority: High Onset Date: 12/02/18 Annotation/Comment: : She was placed in finger splint as above. Activity restrictions discussed. Close follow-up by regular provider as per discharge instructions. (3) Hyperlipidemia SNOMED Code(s): 74896626 Code(s): E78.5 - HYPERLIPIDEMIA, UNSPECIFIED Status: Chronic Priority: Medium Annotation/Comment:: Continue current medical therapy with weight loss in moderation advisable. Qualifiers: Hyperlipidemia type: mixed hyperlipidemia Qualified Code(s): E78.2 - Mixed hyperlipidemia (4) Hypertension SNOMED Code(s): 86430790 Code(s): I10 - ESSENTIAL (PRIMARY) HYPERTENSION Status: Chronic Priority : Medium Annotation/Comment:: Blood pressure somewhat elevated on arrival with improvement prior to discharge without treatment. Note that patient has not taken any of her medications for the last 3 days. Medication compliance strongly encouraged. Qualifiers: Hypertension type: essential hypertension Qualified Code(s): I10 - Essential (primary) hypertension (5) Mixed anxiety depressive disorder SNOMED Code(s): 346112573 Code(s): F41.8 - OTHER SPECIFIED ANXIETY DISORDERS Status: Chronic Priority: Medium Annotation/Comment:: Stable by patient history (6) Osteoarthritis SNOMED Code(s): 761237468 Code(s): M19.90 - UNSPECIFIED OSTEOARTHRITIS, UNSPECIFIED SITE Status: Chronic Priority: Medium Annotation/Comment:: Otherwise stable by patient history Qualifiers: Osteoarthritis location: multiple joints Osteoarthritis type: primary Qualified Code(s): M15.0 - Primary generalized (osteo)arthritis - Problem List Review Problem List Initiated/Reviewed/Updated: Yes - My Orders Last 24 Hours: My Active Orders 12/02/18 18:34 Fingers Fourth Digit Lt F3 [CR] Stat Obtain Past Medical Record [OM.PC] Routine 12/02/18 19:16 Vaccines to be Administered [RC] PER UNIT ROUTINE Durable Medical Equipment for Discharge [DME for Discharge] [COMM] Routine - Assessment/Plan Last 24 Hours: My Active Orders 12/02/18 18:34 Fingers Fourth Digit Lt F3 [CR] Stat Obtain Past Medical Record [OM.PC] Routine 12/02/18 19:16 Vaccines to be Administered [RC] PER UNIT ROUTINE Durable Medical Equipment for Discharge [DME for Discharge] [COMM] Routine Assessment:: As above Plan: As above. Extensive precautions were given to the patient and her , who are in agreement with the treatment plan. See Patient Instructions for further treatment and plan.
[2018-12-02] MEDS ORDERED: Bacitracin/Neomycin/Polymyxin B Oint 0.9 GM U/D Packet TOP ONE (18:56)
[2018-12-02] MEDS ORDERED: Diphtheria,Pertussis(Acell),Tetanus Vaccine 0.5 ML SDV IM ONE (19:16)
[2018-12-02] MEDS ORDERED: Amoxicillin/Clavulanate K 875-125 MG Tab PO ONE (19:26)
[2018-12-02 20:07] VITALS: BP 134/72
== END 2018-12-02 19:50 | disposition home or self-care (01) ==
LOC: LL.ED 18:16
DX: S62.665A Nondisplaced fracture of distal phalanx of left ring finger, initial encounter for closed fracture (principal); S61.215A Laceration without foreign body of left ring finger without damage to nail, initial encounter; F41.8 Other specified anxiety disorders; M15.0 Primary generalized (osteo)arthritis; E78.2 Mixed hyperlipidemia; I10 Essential (primary) hypertension; E78.00 Pure hypercholesterolemia, unspecified; Z23 Encounter for immunization; Z88.6 Allergy status to analgesic agent; Z88.8 Allergy status to other drugs, medicaments and biological substances; Z79.899 Other long term (current) drug therapy; Z79.82 Long term (current) use of aspirin; W23.1XXA Caught, crushed, jammed, or pinched between stationary objects, initial encounter
CPT/HCPCS: 12001; 73140-F3; 90471; 90715; 99283-25; A9270-GY; J2001

== ENCOUNTER → 2019-02-14 | Outpatient (CLI) | payer BC | LOC: LL.LAB 09:17 | PROVIDERS: ATTEND Nurse Practitioner | DX: N39.0 Urinary tract infection, site not specified (principal) | CPT/HCPCS: 81001; 87086; 87088; 87186 ==

== ENCOUNTER 2020-05-18 20:53 | Emergency (ER) | payer BC ==
[2020-05-18 21:10] VITALS: BP 154/73; PULSE 77
--- NOTE | 2020-05-18 21:31 | EDM.PDOC ---
ED HPI GENERAL MEDICAL PROBLEM - General Chief Complaint: Skin Complaint Stated Complaint: SKIN REACTION Time Seen by Provider: 05/18/20 21:00 Source of Information: Reports: Patient History Limitations: Reports: No Limitations - History of Present Illness INITIAL COMMENTS - FREE TEXT/NARRATIVE: Pt seen in clinic today for painful elbow and started on Diclofenac. Now with irregular raised colored areas on left hand and forearm No pain No itching No vesicles No other complaints No previous hx/o same Left Lower Anterior Arm Pain Score (Numeric/FACES): 5 - Related Data Allergies Allergy/AdvReac Type Severity Reaction Status Date / Time alendronate sodium Allergy Rash Verified 05/18/20 20:53 [From Fosamax] celebrex Allergy Rash Uncoded 05/18/20 20:53 Home Meds: Home Meds Bisoprolol [Zebeta] 5 mg PO DAILY 05/03/17 [History] Sertraline [Zoloft] 50 mg PO DAILY 05/03/17 [History] Aspirin [Ecotrin EC] 325 mg PO DAILY 09/19/18 [History] Ca/D3/Mag Ox/Zinc/Mental Health Aides Teacher/Stanley/Bor [Calcium 600-D3 Plus Caplet] 1 tab PO DAILY 05/18/20 [History] Ubidecarenone/Vit E Acet [Q-Gel Jg 100 MG Softgel] 1 cap PO DAILY 05/18/20 [History] Past Medical History HEENT History: Reports: Cataract, Impaired Vision Other HEENT History: Wears eyeglasses. Beginning cataracts. Cardiovascular History: Reports: High Cholesterol, Hypertension, PVD Other Cardiovascular History: Hyperlipidemia with secondary fatty liver as below. Varicose veins on the legs bilaterally. History of thrombosis of the greater saphenous vein on 12/31/14. Respiratory History: Reports: Intubation, Previous, Other (See Below) Other Respiratory History: History of 6 mm right middle lobe benign pulmonary granuloma Gastrointestinal History: Reports: Cholelithiasis, Gastritis, Hemorrhoids, Helicobacter Pylori Other Gastrointestinal History: History of gastritis with positive H. pylori biopsy by EGD on 12/28/05 with patient uncertain whether this infection was treated. Cholelithiasis with surgery as below. Fatty liver with secondary LFTs elevation. Genitourinary History: Reports: Other (See Below) Other Genitourinary History: Benign right renal cyst by ultrasound CELLAR WORKER History: Reports: Dysfunctional Uterine Bleeding, Fibroids, Other CELLAR WORKER History: Full term without complications during pregnancies or deliveries. Surgical menopause secondary to uterine fibroids as below. Musculoskeletal History: Reports: Arthritis, Fracture, Osteoarthritis, Osteoporosis, Other (See Below) Other Musculoskeletal History: Osteoarthritis mostly in her knees with history of left knee chondromalacia by MRI. Proximal radial head left elbow fracture on 06/11/05 Neurological History: Reports: Headaches, Chronic, Migraines Psychiatric History: Reports: Anxiety, Depression Endocrine/Metabolic History: Reports: Obesity/BMI 30+, Osteopenia, Osteoporosis Hematologic History: Reports: Anemia, Blood Transfusion(s), Iron Deficiency Other Hematologic History: 2 units of packed red blood cells secondary to iron deficiency anemia from dysfunctional uterine bleeding in 2006 Immunologic History: Reports: None Oncologic (Cancer) History: Reports: None Dermatologic History: Reports: None - Infectious Disease History Infectious Disease History: Reports: Chicken Pox, Helicobacter Pylori, Mononucleosis (At age 20), Mumps, Shingles (Left facial and cervical testosterone 2005.). Denies: C-Difficile, Measles, Meningitis, MRSA, Pertussis (Whooping Cough), Rheumatic Fever, Rubella, Scarlet Fever, TB, VRE - Past Surgical History Head Surgeries/Procedures: Reports: None HEENT Surgical History: Reports: None, Oral Surgery, Other (See Below) Other HEENT Surgeries/Procedures: [place] teeth extraction 4 as a teenager Cardiovascular Surgical History: Reports: None Respiratory Surgical History: Reports: None GI Surgical History: Reports: Cholecystectomy, Colonoscopy, EGD, Other (See Below) Other GI Surgeries/Procedures: Laparoscopic cholecystectomy on 09/19/18. EGD and colonoscopy on 12/28/06. Female Surgical History: Reports: Breast Biopsy, Hysterectomy, Salpingo- Oophorectomy Other Female Surgeries/Procedures: Complete hysterectomy including bilateral salpingo-oophorectomy at age 52 secondary to dysfunctional uterine bleeding. Breast biopsy for benign disease in her 32sside unknown. Endocrine Surgical History: Reports: None Neurological Surgical History: Reports: None Musculoskeletal Surgical History: Reports: None Oncologic Surgical History: Reports: None Dermatological Surgical History: Reports: None - Past Imaging History Past Imaging History: Reports: CAT Scan (CT of the head on 05/29/18. CT of the cervical and lumbar spines on 09/14/09), DEXA Scan (03/28/03), Mammogram (Last mammogram on 06/16/16), MRI (Left knee on 11/29/15), Ultrasound (Abdominal ultrasound on 09/13/18 and 06/02/13. Pelvic ultrasound on 12/18/06), Venous Doppler (Venous Doppler study of the left leg on 12/31/17, 04/23/17, and 11/15/15. Right leg venous Doppler study on 04/23/17) Social & Family History - Family History Oncologic: Reports: Breast, Other (See Below) Other Oncologic Family History: Mother with breast cancer. - Caffeine Use Caffeine Use: Reports: None. Denies: Coffee, Energy Drinks, Soda, Tea - Living Situation & Occupation Living situation: Reports: (1979, 1 child), with Family () Occupation: Employed (Housekeeping at [employer]) ED ROS GENERAL - Review of Systems Review Of Systems: See Below Musculoskeletal: Reports: Joint Pain Skin: Reports: Change in Color, Lesions, Lumps ED EXAM, SKIN/RASH Exam: See Below Skin: Other (Irregular raised pale colored lesions on left hand and left forearm No erythema No vesicles No open areas) Course - Vital Signs Last Recorded V/S: Last Vital Signs Temp 96.2 F L 05/18/20 21:09 Pulse 77 05/18/20 21:09 Resp 20 05/18/20 21:09 BP 154/73 H 05/18/20 21:09 Pulse Ox 100 05/18/20 21:09 - Orders/Labs/Meds Orders: Active Orders 24 hr Category Date Time Status methylPREDNISolone Sod Succ [Solu-MEDROL] Med 05/18/20 21:25 Once 125 mg IM ONETIME ONE Meds: Medications Discontinued Medications Generic Name Dose Route Start Last Admin Trade Name Noemí PRN Reason Stop Dose Admin Methylprednisolone Sodium Succinate 125 mg 05/18/20 21:25 Solu-Medrol IM 05/18/20 21:26 ONETIME ONE - Re-Assessments/Exams Free Text/Narrative Re-Assessment/Exam: 05/18/20 21:29 Pt given Solu-medrol 125 mg IM in ER Departure - Departure Time of Disposition: 21:30 Disposition: Home, Self-Care 01 Clinical Impression: Urticaria - Discharge Information *PRESCRIPTION DRUG MONITORING PROGRAM REVIEWED*: Not Applicable *COPY OF PRESCRIPTION DRUG MONITORING REPORT IN PATIENT AGNES: Not Applicable Instructions: Rash, Adult Referrals: Janelle Bernard NP [Primary Care Provider] - Additional Instructions: Hold Diclofenac Follow up in clinic Sepsis Event Note (ED) - Evaluation Sepsis Screening Result: No Definite Risk - Focused Exam Vital Signs: Vital Signs Temp Pulse Resp BP Pulse Ox 05/18/20 21:09 96.2 F L 77 20 154/73 H 100 - My Orders Last 24 Hours: My Active Orders 05/18/20 21:25 methylPREDNISolone Sod Succ [Solu-MEDROL] 125 mg IM ONETIME ONE - Assessment/Plan Last 24 Hours: My Active Orders 05/18/20 21:25 methylPREDNISolone Sod Succ [Solu-MEDROL] 125 mg IM ONETIME ONE
[2020-05-18] MEDS: methylPREDNISolone Sodium Succinate 125 MG/2 ML SDV IM ONE (21:40)
== END 2020-05-18 21:40 | disposition home or self-care (01) ==
LOC: LL.ED 20:53
DX: L50.9 Urticaria, unspecified (principal); I10 Essential (primary) hypertension; M19.90 Unspecified osteoarthritis, unspecified site; E66.9 Obesity, unspecified; Z88.8 Allergy status to other drugs, medicaments and biological substances; Z79.82 Long term (current) use of aspirin; Z79.899 Other long term (current) drug therapy
CPT/HCPCS: 96372; 99282; 99283; J2930

== ENCOUNTER 2021-06-29 13:03 | Emergency (ER) | payer BC ==
[2021-06-29] MEDS ORDERED: Adenosine 6 MG/2 ML SDV IVPUSH ONE ×2 (13:12→13:16)
[2021-06-29] MEDS ORDERED: Adenosine 6 MG/2 ML SDV ONE (13:19)
[2021-06-29 14:26] LABS: ANION GAP 11.1 meq/L (7-15); CHLORIDE,CL 107 mmol/L (98-107); SODIUM,NA 143 mmol/L (136-145)
[2021-06-29] MEDS ORDERED: Lactated Ringers 1,000 ML IV ONE (14:42)
[2021-06-29 17:46] VITALS: BP 133/84; PULSE 79
== END 2021-06-29 16:30 | disposition home or self-care (01) ==
LOC: LL.ED 13:03
DX: I47.1 Supraventricular tachycardia (principal); E78.00 Pure hypercholesterolemia, unspecified; I10 Essential (primary) hypertension; M19.90 Unspecified osteoarthritis, unspecified site; Z88.8 Allergy status to other drugs, medicaments and biological substances; Z79.82 Long term (current) use of aspirin
CPT/HCPCS: 36415; 80053; 83735; 84484; 85025; 93005; 96374; 99285-25; J0153; J7120

== ENCOUNTER 2021-11-09 12:51 | Emergency (ER) | payer BC ==
[2021-11-09] MEDS ORDERED: Diltiazem 25 MG/5 ML SDV IVPUSH ONE (13:00)
[2021-11-09 13:31] LABS: ANION GAP 10.2 meq/L (7-15)
[2021-11-09] MEDS ORDERED: Diltiazem 120 MG Cap.CD PO ONE (13:42)
[2021-11-09 13:57] VITALS: BP 128/66; PULSE 92
== END 2021-11-09 15:05 | disposition home or self-care (01) ==
LOC: LL.ED 12:51
DX: I48.91 Unspecified atrial fibrillation (principal); I10 Essential (primary) hypertension; M19.90 Unspecified osteoarthritis, unspecified site; E66.9 Obesity, unspecified; Z88.8 Allergy status to other drugs, medicaments and biological substances; Z79.82 Long term (current) use of aspirin; Z68.38 Body mass index [BMI] 38.0-38.9, adult
CPT/HCPCS: 36415; 71045; 80053; 83735; 83880; 84484; 85025; 85379; 85610; 93005; 93010; 96374; 99284; 99285-25; J3490

== ENCOUNTER 2023-08-23 14:03 | Emergency (ER) | payer BC, MEDICARE ==
[2023-08-23 14:12] VITALS: BP 109/81; PULSE 184
[2023-08-23 14:18] LABS: BASOPHILS ABSOLUTE AUTO 0.02 K/uL (0.00-0.20); BASOPHILS PERCENT AUTO 0.1 % (0.0-2.0); EOSINOPHILS PERCENT AUTO 1.9 % (0.0-5.0); HEMATOCRIT 40.2 % (34.0-46.0); HEMOGLOBIN 13.3 g/dL (11.7-15.5); LYMPHOCYTES ABSOLUTE AUTO 4.72 K/uL (0.50-3.50); LYMPHOCYTES PERCENT AUTO 29.5 % (10.0-50.0); MEAN CORPUSCULAR HEMOGLOBIN 28.9 pg (28.2-33.3); MEAN CORPUSCULAR HGB CONC 33.1 g/dL (31.7-36.0); MEAN CORPUSCULAR VOLUME 87.2 fL (84.0-98.0); MONOCYTES PERCENT AUTO 5.6 % (2.0-14.0); NEUTROPHILS ABSOLUTE AUTO 10.07 K/uL (1.40-7.00); NEUTROPHILS PERCENT AUTO 62.9 % (45.0-80.0); PLATELET COUNT,PLT 332 K/uL (150-350); RED BLOOD CELL COUNT 4.61 M/uL (3.77-5.09); RED CELL DISTRIBUTION WIDTH 14.5 % (11.2-14.1)
[2023-08-23] MEDS: Diltiazem 25 MG/5 ML SDV IVPUSH ONE (14:28)
[2023-08-23 14:39] LABS: PROTHROMBIN TIME 10.4 SEC (9.0-11.1)
[2023-08-23 14:46] LABS: ALANINE AMINOTRANSFERASE,ALT 68 U/L (12-78); ALBUMIN 3.8 g/dL (3.4-5.0); ALKALINE PHOSPHATASE 134 IU/L (46-116); ANION GAP 11.7 meq/L (7-15); ASPARTATE AMNIOTRANSFERASE,AST 37 U/L (15-37); BLOOD UREA NITROGEN,BUN 24 mg/dL (7-18); CALCIUM 8.8 mg/dL (8.5-10.1); CARBON DIOXIDE,CO2 25.3 mmol/L (21.0-32.0); CHLORIDE,CL 102 mmol/L (98-107); CREATININE 1.23 mg/dL (0.51-1.17); GLUCOSE RANDOM 234 mg/dL (70-99); MAGNESIUM 1.8 mg/dL (1.8-2.4); POTASSIUM,K 4.1 mmol/L (3.5-5.1); PRO B-TYPE NATRIUR PEPT,BNPPRO 1172 pg/mL (0-125); PROTEIN TOTAL,TP 7.3 g/dL (6.4-8.2); SODIUM,NA 139 mmol/L (136-145)
[2023-08-23 14:47] LABS: ESTIMATED GFR 48 mL/min (>=60)
[2023-08-23] MEDS ORDERED: Furosemide 40 MG/4 ML VIAL IVPUSH ONE (14:54)
== END 2023-08-23 15:10 | disposition home or self-care (01) ==
LOC: LL.ED 14:03
DX: I47.10 Supraventricular tachycardia, unspecified (principal); I10 Essential (primary) hypertension; Z90.49 Acquired absence of other specified parts of digestive tract; Z79.899 Other long term (current) drug therapy; Z88.8 Allergy status to other drugs, medicaments and biological substances
CPT/HCPCS: 36415; 80053; 83735; 83880; 84484; 85025; 85610; 93005; 96374; 99285-25; J3490

== ENCOUNTER 2023-09-27 17:05 | Emergency (ER) | payer BC ==
[2023-09-27] MEDS: Lidocaine 2% with EPINEPHrine 1:100,000 20 ML MDV INJECT ONE (17:34)
[2023-09-27 18:38] VITALS: BP 129/78; PULSE 73
== END 2023-09-27 17:55 | disposition home or self-care (01) ==
LOC: LL.ED 17:05
DX: S02.5XXA Fracture of tooth (traumatic), initial encounter for closed fracture (principal); S01.111A Laceration without foreign body of right eyelid and periocular area, initial encounter; S60.221A Contusion of right hand, initial encounter; Z88.8 Allergy status to other drugs, medicaments and biological substances; Z79.899 Other long term (current) drug therapy; W01.0XXA Fall on same level from slipping, tripping and stumbling without subsequent striking against object, initial encounter; Y93.89 Activity, other specified; Y99.0 Civilian activity done for income or pay
CPT/HCPCS: 12011; 99283; J3490